=== PATIENT | male | born 1940 | race African-American/Black ===

== ENCOUNTER 2018-01-04 18:29 | Inpatient (IN) | payer OTHER, BC ==
[2018-01-10 12:00] VITALS: BMI 28.5
--- NOTE | 2018-01-10 12:07 | HP ---
HISTORY OF PRESENT ILLNESS 77 year-old male with a PMH significant for HTN and cervical radiculopathy. He is scheduled to under go C4-C5 corpectomy and C3, C6 partial corpectomy with Dr. Yoseph Lopez. PCP: Dr. 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 Smoking: quit 29 years ago Alcohol: occasional, social Drugs: no Past medical history Hypertension Past surgical history Left achilles repair 1975 ([place]) Bilateral knee arthroscopy 1989 ([facility]) Bunionectomy Home Medications Lotrel 10-20 Vitamin B12 REVIEW OF SYSTEMS CONSTITUTIONAL: Absent: fever, chills, diaphoresis, generalized weakness, malaise, loss of appetite, weight change HEENT: Absent: rhinorrhea, nasal congestion, throat pain, throat swelling, difficulty swallowing, mouth swelling, ear pain, eye pain, visual changes CARDIOVASCULAR: Absent: chest pain, syncope, palpitations, irregular heart rate, lightheadedness , peripheral edema RESPIRATORY: Absent: cough, shortness of breath, dyspnea with exertion, orthopnea, wheezing, stridor, hemoptysis GASTROINTESTINAL: Absent: abdominal pain, abdominal distension, nausea, vomiting, diarrhea, constipation, melena, hematochezia GENITOURINARY: Absent: dysuria, frequency, urgency, hesitancy, hematuria, flank pain, genital pain MUSCULOSKELETAL: +left sided trapezius and left shoulder pain Absent: myalgia, arthralgia, joint swelling, back pain, neck pain SKIN: Absent: rash, itching, pallor HEMATOLOGIC/IMMUNOLOGIC: Absent: easy bleeding, easy bruising, lymphadenopathy, frequent infections ENDOCRINE: Absent: unexplained weight gain, unexplained weight loss, heat intolerance, cold intolerance NEUROLOGIC: Absent: headache, focal weakness or paresthesias, dizziness, unsteady gait, seizure, mental status changes, bladder or bowel incontinence PSYCHIATRIC: Absent: anxiety, depression, suicidal or homicidal ideation, hallucinations. PHYSICAL EXAMINATION: Vitals: T 98.5 BP 129/70 p70 RR 14 SpO2 98% room air Labs: reviewed CXR: reviewed report EC01/02/18 sinus rhythm @ 73bpm GENERAL: Awake, alert, and fully oriented, in no acute distress. HEAD: Normal with no signs of trauma. EYES: Pupils equal, round and reactive to light, extraocular movements intact, sclera anicteric, conjunctiva clear. No lid lag. EARS, NOSE, THROAT: Ears normal, nares patent, oropharynx clear without exudates. Moist mucous membranes. NECK: Normal range of motion, supple without lymphadenopathy, JVD, or masses. LUNGS: Breath sounds equal, clear to auscultation bilaterally. No wheezes, and no crackles. No accessory muscle use. HEART: Regular rate and rhythm, normal S1 and S2 without murmur, rub or gallop. ABDOMEN: Soft, nontender, not distended MUSCULOSKELETAL: Normal range of motion at all joints. No bony deformities or tenderness. No CVA tenderness. UPPER EXTREMITIES: 2+ pulses, warm, well-perfused. No cyanosis. No clubbing. No peripheral edema. LOWER EXTREMITIES: 2+ pulses, warm, well-perfused. No calf tenderness. No peripheral edema. NEUROLOGICAL: Cranial nerves II-XII intact. Normal speech. Normal gait. PSYCHIATRIC: Cooperative. Good eye contact. Appropriate mood and affect. SKIN: Warm, dry, normal turgor ASSESSMENT/PLAN: 77 year-old male with a PMH significant for HTN and cervical radiculopathy. Cervical radiculopathy --scheduled to under go C4-C5 corpectomy and C3, C6 partial corpectomy Hypertension --BP stable --continue Lotrel 10-20
[2018-01-22] MEDS ORDERED: THROMBIN (BOVINE) 5,000 UNIT VIAL TP ONE ×2 (11:47→15:43)
[2018-01-22] MEDS ORDERED: BENZOIN/ALOE VERA/STORAX/TOLU 58 ML BOTTLE ONE (11:47)
[2018-01-22] MEDS ORDERED: HEPARIN NA (PORCINE) 5,000 UNITS/ML 1ML VIAL ONE (11:47)
[2018-01-22] MEDS ORDERED: ROCURONIUM BROMIDE 50 MG/5 ML VIAL ONE (13:56)
[2018-01-22] MEDS ORDERED: SUCCINYLCHOLINE CHLORIDE 200 MG/10 ML VIAL ONE (13:56)
[2018-01-22] MEDS ORDERED: PROPOFOL 20 ML ONE ×11 (13:56→17:05)
[2018-01-22] MEDS ORDERED: MIDAZOLAM HCL 2 MG/2 ML SINGLE DOSE VIAL ONE (13:56)
[2018-01-22] MEDS ORDERED: LIDOCAINE HCL/PF 2% SDV 5ML VIAL ONE (14:00)
[2018-01-22] MEDS ORDERED: SODIUM CHLORIDE 0.9% P/F 10 ML VIAL IJ ONE ×3 (14:43→15:03)
[2018-01-22] MEDS ORDERED: ceFAZolin SODIUM 1 GM VIAL ONE (14:43)
[2018-01-22] MEDS ORDERED: ceFAZolin SODIUM 1 GM VIAL IVPB ONE (14:45)
[2018-01-22] MEDS ORDERED: VANCOMYCIN 1,000 MG VIAL (RESTRICTED TO ID ONLY) ONE (14:45)
[2018-01-22] MEDS ORDERED: VANCOMYCIN 1,000 MG VIAL (RESTRICTED TO ID ONLY) IVPB ONE (14:48)
[2018-01-22] MEDS ORDERED: DEXAMETHASONE SOD PHOSPHATE 4 MG/1 ML VIAL ONE (14:48)
[2018-01-22] MEDS ORDERED: ePHEDrine SULFATE 50 MG/1 ML AMPULE ONE (15:03)
[2018-01-22] MEDS ORDERED: GLYCOPYRROLATE 0.2 MG/1 ML VIAL ONE (15:06)
[2018-01-22] MEDS ORDERED: ACETAMINOPHEN INJECTION 100 ML IVPB ONE (17:35)
[2018-01-22] MEDS ORDERED: traMADol HCL 50 MG TABLET PO PRN (17:47)
[2018-01-22] MEDS ORDERED: oxyCODONE HCL 5 MG TABLET PO PRN ×2 (17:47)
[2018-01-22] MEDS ORDERED: ONDANSETRON 4 MG/2 ML VIAL IVPUSH PRN ×2 (17:47→18:09)
--- NOTE | 2018-01-22 17:47 | OP ---
Operative Note - Note: Operative Date: 01/22/18 Pre-Operative Diagnosis: 1. Cervical spinal stenosis. 2. Cervical myelopathy. 3. Cervical radiculopathy Operation: 1. C4 corpectomy. 2. C3, C5 partial corpectomies. 3. C3-4, C4-5 discectomies. 4. C3-C5 anterior cervical decompression & fusion. 5. Bone autograft. 6. Bone allograft Post-Operative Diagnosis: Same as Pre-op Surgeon: Yoseph Lopez Life Scientist: Tomasz Lopez Anesthesiologist/RAIL TRANSPORTATION OPERATOR: Daniel Lockwood Anesthesia: General Specimens Removed: C3-4, C4-5 disks Estimated Blood Loss (mls): 25 Fluid Volume Replaced (mls): 1,000 Operative Report Dictated: Yes
--- NOTE | 2018-01-22 17:54 | PN ---
Progress Note (short form) - Note Progress Note: 77M s/p C3-C4, C4-C5 discectomies; C4 corpectomy; C3, C5 partial corpectomies; C3-C5 anterior cervical decompression and instrumented fusion POD #0. -Admit to ICU x 24 hrs. for airway observation; OK to downgrade to floor 2017 if airway stable. -In case of airway emergency, remove anterior cervical spine dressing and pull out running suture. -Maintain head of bed >45 degrees. -Pain control: NO NSAID's. -DVT PPx: -Mechanical only: ABHILASH's, SCD's. -Post-op Ancef x 2 doses. -f/u AM labs. -Incentive spirometry. -PT/OT/Rehab, OOB. -WBAT B/L UE & LE. -d/c De Guzman catheter in AM; f/u TOV. -Keep dressing clean & dry. -No heavy lifting, bending or twisting. -Puree diet; advance as tolerated. -B/L UE & LE NV checks. -Care per ICU & primary medical hospitalist teams. -Discharge planning: Plan to discharge home tomorrow 01/23/2018; f/u [facility] [place] office Monday02/02/2018; call for appointment; . Yoseph Lopez MD (Orthopaedic Surgery).
[2018-01-22] MEDS ORDERED: LACTATED RINGERS SOLUTION 1,000 ML IV SCH (18:00)
[2018-01-22] MEDS ORDERED: HYDROmorphone *PCA* 10MG/50ML DISP.SYRIN PCA SCH (18:15)
[2018-01-22] MEDS: LACTATED RINGERS SOLUTION 1,000 ML IV SCH ×2 (20:00→21:42)
[2018-01-22] MEDS: ceFAZolin 2 GRAM PREMIX BAG IVPB SCH (21:42)
[2018-01-22] MEDS ORDERED: PNEUMOC 13-VAL CONJ-DIP CRM/PF 0.5 ML DISP.SYRIN IM ONE (23:39)
--- NOTE | 2018-01-22 23:49 | OP ---
DATE OF OPERATION: DATE OF DICTATION: 01/22/2018 SURGEON: Yoseph Lopez M.D. SENIOR PREMIUM AUDITOR: Tomasz Lopez M.D. 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 POSTOPERATIVE DIAGNOSIS: C3-4, C4, C4-5, cervical spine stenosis due to cervical spondylosis and cervical spondylotic myelopathy. OPERATION PERFORMED: 1. C4 colpectomy with C3-4 and C4-5 diskectomy. 2. Partial colpectomy C3 and partial colpectomy C5. 3. Insertion of Harms cage with autologous bone graft, C3-C5. 4. Anterior plating C3 to C5. 5. Anterior arthrodesis with bone graft C3 to C5. ANESTHESIA: General. ANTIBIOTICS GIVEN: Kefzol 2 g, 1 g vancomycin, 10 mg Decadron given preoperative. OPERATION IN DETAIL: After the patient was correctly identified, brought to the operating room, cervical spine was prepped routine with Betadine scrub solution, wiped with alcohol, Duraprep applied. The indication here was severe spinal cord compression at C3-4 and C4-5 with a patch of myelomalacia and associated myelopathy. This was performed as a fairly urgent procedure. Patient placed supine. Timeout was called. Under general anesthesia, the cervical spine was prepped in the routine manner with Betadine scrub solution, wiped with alcohol, Duraprep applied. An oblique incision is made at the level of the cricothyroid interval. The dissection was through the plane between the viscera and vessels. The larynx was retracted to the left, carotid sheath to the right, the plane between the viscera and vessels to the prevertebral fascia was identified. Using a peanut, the soft tissues were freed off the anterior aspect of the vertebral column to expose the disk. A marker pin was placed into the C4-5 disk and this was verified on lateral fluoroscopy, assessing correct level for procedure. Medial and lateral retraction performed with routine retractor system. A cast pin was placed at C5. The positions were verified on lateral fluoroscope; once this had been performed, using a matchstick immanuel tip Midas-Guy bur, 2 gutters were placed into the vertebral body of C5, all the bone harvested was then with the Le[place]ell which was resected between the two gutter cuts that were made with the latter named device. The disk of C3-4 and C4-5 were resected using curets. Using a 40-mm immanuel tipped bur, the entire rest of the operation was completed with burring of the end plates to remove all disk material and associate to end plates healthy bleeding bone. Once this had been performed, the entire posterior aspect of the corticocancellous bone was removed with the posterior longitudinal ligament, exposing the spinal cord, which soon was bulging significantly following this. A partial colpectomy of C3, partial colpectomy of C5 performed by undercutting the bone bed at the disk to ensure the cord was completely free. Once this had been performed, the distraction was noted and the Harms cage was then placed between the 2 distracting pins of the Valentine pin distractor set. The cage itself was filled with autologous bone graft and expanded some allograft putty. Once this had been completed, the cage was inserted solidly into the bone bed, the teeth grasping solidly into the end plate above and this then tapped into position inferiorly, thus providing a lock fixed construct. This was filled with bone graft. The Valentine pins were removed. The pinholes filled with allograft putty and associated bone wax. A precision size 32-mm simplicity plate applied, this was for 2-level fixation, 12-mm screws were utilized, 2 into C3 and 2 into C5. Verification of lateral fluoroscopic x-rays revealed excellent positioning of all components. The wounds were thoroughly lavaged. Hemostasis was complete. Closure, platysma and fascia 2-0 Vicryl, skin 3-0 Monocryl and Steri-Strips, no drains. Operation went well, no complications. MD NELLY Aiken/[id number]
[2018-01-23 06:11] LABS: HEMATOCRIT 41.1 % (35.4-49); MCH 33.4 pg (25.7-33.7); MEAN CELL VOLUME 98.3 fl (80-96); MEAN PLT VOLUME 8.2 fl (7.5-11.1); PLATELET COUNT 194 K/MM3 (134-434); RBC 4.18 M/mm3 (4.00-5.60); RDW 12.9 % (11.9-15.9); WHITE BLOOD COUNT 11.1 K/mm3 (4.0-10.0)
[2018-01-23] MEDS: ACETAMINOPHEN 325 MG TABLET (FP) PO SCH ×5 (06:13→20:04)
[2018-01-23] MEDS: ceFAZolin 2 GRAM PREMIX BAG IVPB SCH (06:14)
[2018-01-23 06:42] LABS: ANION GAP 7 (8-16); BLOOD UREA NITROGEN 17 mg/dL (7-18); CALCIUM 8.5 mg/dL (8.5-10.1); CHLORIDE 105 mmol/L (98-107); CO2 28 mmol/L (21-32); CREATININE 1.4 mg/dL (0.7-1.3); GLUCOSE,RANDOM 131 mg/dL (74-106); POTASSIUM 4.8 mmol/L (3.5-5.1); SODIUM 140 mmol/L (136-145)
[2018-01-23] MEDS ORDERED: amLODIPine BESYLATE 10 MG TABLET (FP) PO SCH (10:00)
[2018-01-23] MEDS ORDERED: LISINOPRIL 20 MG TABLET (FP) PO SCH (10:00)
[2018-01-23] MEDS ORDERED: PNEUMOC 13-VAL CONJ-DIP CRM/PF 0.5 ML DISP.SYRIN IM ONE (10:00)
[2018-01-23] MEDS ORDERED: PATIENT'S OWN MEDICATION (NON-FORMULARY) (Amlodipine Besylate/Benazepril [Lotrel 10-20 Mg PO SCH (10:00)
[2018-01-23] MEDS ORDERED: LACTATED RINGERS SOLUTION 1,000 ML IV SCH ×2 (12:29)
[2018-01-23] MEDS ORDERED: ONDANSETRON 4 MG/2 ML VIAL IVPUSH PRN (12:29)
[2018-01-23] MEDS ORDERED: oxyCODONE HCL 5 MG TABLET PO PRN ×2 (12:29)
[2018-01-23] MEDS ORDERED: traMADol HCL 50 MG TABLET PO PRN (12:29)
[2018-01-23] MEDS ORDERED: HYDROmorphone *PCA* 10MG/50ML DISP.SYRIN PCA SCH (13:00)
--- NOTE | 2018-01-23 13:32 | PN ---
Progress Note (short form) - Note Progress Note: Anesthesia POD#1 S/P Cervical Corpectomy under GA and HEAD OF ICT VSS,Out of bed to chair. Pain is poorly controlled. Instructions of HEAD OF ICT use is given again.No N/V Start orals today. A/P Continue the HEAD OF ICT for today. Nhi Saeed MD.
--- NOTE | 2018-01-23 13:47 | PN ---
Teaching Attending Note Name of Resident: Nelly Sheth ATTENDING PHYSICIAN STATEMENT I saw and evaluated the patient. I reviewed the resident's note and discussed the case with the resident. I agree with the resident's findings and plan as documented. SUBJECTIVE: Pt seen and examined in the ICU. Briefly, 77yo male with h/o HTN, cervical spinal stenosis with myelopathy/radiculopathy who was admitted for elective C4 corpectomy/C3, C5 partial corpectomies/C3-4, C4-5 discectomies/C3-C5 anterior cervical decompression/fusion. EBL 25mL, pain relatively controlled. No shortness of breath or chest pain. No nausea or vomiting. No fevers or chills. OBJECTIVE: Vital Signs Period Temp Pulse Resp BP Sys/Tom Pulse Ox Last 24 Hr 98.0 F-99.4 F 55-77 10-18 91-139/55-80 96-100 Intake & Output 01/20/18 01/21/18 01/22/18 01/23/18 23:59 23:59 23:59 23:59 Intake Total 2100 Output Total 825 Balance 1275 Weight 98.656 kg Gen: NAD in chair Heart: RRR Lung: decreased breath sounds at the bases Abd: soft, nontender Ext: no edema CBC, BMP 01/23/18 05:30 01/23/18 05:30 Active Medications Acetaminophen (Tylenol -) 650 mg PO Q6H AIMEE Amlodipine Besylate (Norvasc -) 10 mg PO DAILY AIMEE Hydromorphone HCl (Dilaudid Monitor Car Operator -) 10 mg TUBULAR RIVETER TUBULAR RIVETER AIMEE; Protocol Stop: 01/29/18 12:59 Lactated Ringer's (Lactated Ringers Solution) 1,000 mls @ 100 mls/hr IV ASDIR AIMEE Lactated Ringer's (Lactated Ringers Solution) 1,000 mls @ 75 mls/hr IV ASDIR AIMEE Last Admin: 01/23/18 13:14 Dose: 75 mls/hr Lisinopril (Prinivil) 20 mg PO DAILY AIMEE Lorazepam (Ativan Injection -) 1 mg IVPUSH Q6H PRN PRN Reason: MUSCLE SPASMS Ondansetron HCl (Zofran Injection) 4 mg IVPUSH Q6H PRN PRN Reason: NAUSEA AND/OR VOMITING Oxycodone HCl (Roxicodone -) 5 mg PO Q4H PRN PRN Reason: PAIN LEVEL 6-10 Oxycodone HCl (Roxicodone -) 10 mg PO Q4H PRN PRN Reason: PAIN LEVEL 7 - 10 Tramadol HCl (Ultram -) 50 mg PO Q6H PRN PRN Reason: PAIN LEVEL 6-10 ASSESSMENT AND PLAN: Cervical Stenosis with Myelopathy/Radiculopathy s/p C4 corpectomy/C3, C5 partial corpectomies/C3-4, C4-5 discectomies/C3-C5 anterior cervical decompression/fusion HTN - pain control - incentive spirometry - IVF - PO/activity/DVT prophylaxis/disposition per surgery
--- NOTE | 2018-01-23 14:53 | CONSULT ---
Consultation: HISTORY OF PRESENT ILLNESS: 77yo male with a pmhx of HTN, cervical spinal stenosis with radiculopathy who was admitted for elective C4 corpectomy/C3, C5 partial corpectomies/C3-4, C4-5 discectomies/C3-C5 anterior cervical decompression/fusion. Patient is POD #1. Patient says pain is controlled, but with soreness around surgical site. Denies chest pain, sob, edema, nausea, vomiting, dizziness, dysuria. REVIEW OF SYSTEMS: CONSTITUTIONAL: Absent: fever, chills, diaphoresis, generalized weakness, malaise, loss of appetite, weight change HEENT: Absent: rhinorrhea, nasal congestion, throat pain, throat swelling, difficulty swallowing, mouth swelling, ear pain, eye pain, visual changes CARDIOVASCULAR: Absent: chest pain, syncope, palpitations, irregular heart rate, lightheadedness , peripheral edema RESPIRATORY: Absent: cough, shortness of breath, dyspnea with exertion, orthopnea, wheezing, stridor, hemoptysis GASTROINTESTINAL: Absent: abdominal pain, abdominal distension, nausea, vomiting, diarrhea, constipation, melena, hematochezia GENITOURINARY: Absent: dysuria, frequency, urgency, hesitancy, hematuria, flank pain, genital pain MUSCULOSKELETAL: neck pain Absent: myalgia, arthralgia, joint swelling, back pain SKIN: Absent: rash, itching, pallor HEMATOLOGIC/IMMUNOLOGIC: Absent: easy bleeding, easy bruising, lymphadenopathy, frequent infections ENDOCRINE: Absent: unexplained weight gain, unexplained weight loss, heat intolerance, cold intolerance NEUROLOGIC: Absent: headache, focal weakness or paresthesias, dizziness, unsteady gait, seizure, mental status changes, bladder or bowel incontinence PHYSICAL EXAMINATION Vital Signs - 24 hr 01/22/18 01/22/18 01/22/18 18:00 18:15 18:30 Temperature 98.0 F Pulse Rate 69 73 70 Respiratory 16 14 16 Rate Blood Pressure 108/59 93/61 106/65 O2 Sat by Pulse 99 96 96 Oximetry (%) 01/22/18 01/22/18 01/22/18 18:35 18:45 19:00 Temperature Pulse Rate 70 65 69 Respiratory 16 11 L 14 Rate Blood Pressure 106/65 91/55 101/56 O2 Sat by Pulse 98 100 Oximetry (%) 01/22/18 01/22/18 01/22/18 19:15 19:30 19:45 Temperature Pulse Rate 69 67 75 Respiratory 12 13 15 Rate Blood Pressure 118/62 131/76 126/71 O2 Sat by Pulse 100 98 100 Oximetry (%) 01/22/18 01/22/18 01/22/18 20:00 20:15 20:30 Temperature Pulse Rate 72 71 77 Respiratory 14 11 L 16 Rate Blood Pressure 114/58 117/62 112/80 O2 Sat by Pulse 99 100 100 Oximetry (%) 01/22/18 01/22/18 01/22/18 20:45 21:00 21:10 Temperature 98.0 F Pulse Rate 73 72 71 Respiratory 17 16 13 Rate Blood Pressure 115/61 116/60 127/73 O2 Sat by Pulse 100 Oximetry (%) 01/22/18 01/22/18 01/22/18 21:30 22:00 23:00 Temperature Pulse Rate 70 64 Respiratory 13 17 13 Rate Blood Pressure 132/71 135/77 O2 Sat by Pulse 96 Oximetry (%) 01/23/18 01/23/18 01/23/18 00:00 01:00 02:00 Temperature 99.4 F Pulse Rate 60 63 59 L Respiratory 10 L 13 18 Rate Blood Pressure 119/69 134/75 121/64 O2 Sat by Pulse 100 Oximetry (%) 01/23/18 01/23/18 01/23/18 04:00 06:00 06:23 Temperature 98.5 F Pulse Rate 59 L 55 L Respiratory 14 14 Rate Blood Pressure 117/67 139/72 O2 Sat by Pulse 97 Oximetry (%) 01/23/18 01/23/18 01/23/18 08:00 09:00 10:00 Temperature Pulse Rate 74 76 Respiratory 13 13 Rate Blood Pressure 139/75 127/71 O2 Sat by Pulse 100 100 Oximetry (%) 01/23/18 01/23/18 01/23/18 10:23 11:00 13:00 Temperature 98.5 F Pulse Rate 62 64 Respiratory 14 18 Rate Blood Pressure 133/59 135/65 O2 Sat by Pulse 98 Oximetry (%) GENERAL: Awake, alert, and fully oriented, in no acute distress. EYES: Pupils equal, round and reactive to light, extraocular movements intact, sclera anicteric, conjunctiva clear. EARS, NOSE, THROAT: Ears normal, nares patent, oropharynx clear without exudates. Moist mucous membranes. NECK:supple without lymphadenopathy, JVD, or masses. surgical dressing ant neck. LUNGS: Breath sounds equal, clear to auscultation bilaterally. HEART: RRR, no MGR ABDOMEN: Soft, nontender, not distended, normoactive bowel sounds UPPER EXTREMITIES: 2+ pulses, warm, well-perfused. No peripheral edema. LOWER EXTREMITIES: 2+ pulses, No peripheral edema. NEUROLOGICAL: Cranial nerves II-XII intact. Laboratory Results - last 24 hr 01/23/18 01/23/18 05:30 05:30 WBC 11.1 H RBC 4.18 Hgb 14.0 Hct 41.1 MCV 98.3 H MCH 33.4 MCHC 34.0 RDW 12.9 Plt Count 194 MPV 8.2 Sodium 140 Potassium 4.8 Chloride 105 Carbon Dioxide 28 Anion Gap 7 L BUN 17 Creatinine 1.4 H Creat Clearance w eGFR 49.41 Random Glucose 131 H Calcium 8.5 Active Medications Generic Name Dose Route Start Last Admin Trade Name Freq PRN Reason Stop Dose Admin Acetaminophen 650 mg 01/23/18 18:00 Tylenol - PO Q6H AIMEE Amlodipine Besylate 10 mg 01/24/18 10:00 Norvasc - PO DAILY AIMEE Hydromorphone HCl 10 mg 01/23/18 13:00 Dilaudid Multiple Knife Edge Trimmer Operator - BUSINESS RISK ANALYST 01/29/18 12:59 BUSINESS RISK ANALYST AIMEE Protocol Lactated Ringer's 1,000 mls @ 100 mls/hr 01/23/18 12:29 Lactated Ringers Solution IV ASDIR AIMEE Lactated Ringer's 1,000 mls @ 75 mls/hr 01/23/18 12:29 01/23/18 13:14 Lactated Ringers Solution IV 75 mls/hr ASDIR AIMEE Administration Lisinopril 20 mg 01/24/18 10:00 Prinivil PO DAILY AIMEE Lorazepam 1 mg 01/23/18 12:29 Ativan Injection - IVPUSH Q6H PRN MUSCLE SPASMS Ondansetron HCl 4 mg 01/23/18 12:29 Zofran Injection IVPUSH Q6H PRN NAUSEA AND/OR VOMITING Oxycodone HCl 5 mg 01/23/18 12:29 Roxicodone - PO Q4H PRN PAIN LEVEL 6-10 Oxycodone HCl 10 mg 01/23/18 12:29 Roxicodone - PO Q4H PRN PAIN LEVEL 7 - 10 Tramadol HCl 50 mg 01/23/18 12:29 Ultram - PO Q6H PRN PAIN LEVEL 6-10 ASSESSMENT/PLAN: s/p C4 corpectomy/C3, C5 partial corpectomies/C3-4, C4-5 discectomies/C3-C5 anterior cervical decompression/fusion -pain control with Dilaudid BUSINESS RISK ANALYST, oxycodone -IV fluids -follow surgical reccs -D/c grijalva -O2 supplementation as needed. -puree diet -PT -incentive spirometry FEN -LR @ 100 -monitor lytes -puree PPx Scds Transfer to [facility] Dispo: We will continue to follow the patient. Thank you for this consultative opportunity. Visit type - Emergency Visit Emergency Visit: Yes ED Registration Date: 01/22/18 Care time: The patient presented to the Emergency Department on the above date and was hospitalized for further evaluation of their emergent condition. - New Patient This patient is new to me today: Yes Date on this admission: 01/23/18 - Critical Care Critical Care patient: Yes Total Critical Care Time (in minutes): 40 Critical Care Statement: The care of this patient involved high complexity decision making to prevent further life threatening deterioration of the patient 's condition and/or to evaluate & treat vital organ system(s) failure or risk of failure.
--- NOTE | 2018-01-23 15:41 | PN ---
Physical Exam: SUBJECTIVE: Patient seen and examined. Having sore throat. Yet to get out of bed and into chair. OBJECTIVE: Vital Signs Period Temp Pulse Resp BP Sys/Tom Pulse Ox Last 24 Hr 98.0 F-99.4 F 55-77 10-18 91-139/55-80 96-100 Vital Signs Temp 98.5 F 01/23/18 11:00 Pulse 66 01/23/18 14:23 Resp 16 01/23/18 14:23 BP 130/70 01/23/18 14:23 Pulse Ox 98 01/23/18 10:23 Intake & Output 01/22/18 01/23/18 01/23/18 23:59 11:59 23:59 Intake Total 2100 Output Total 825 Balance 1275 Weight 98.656 kg Intake: IV 2100 Output: Urine 800 De Guzman 100 Estimated Blood Loss 25 Other: Voiding Method Indwelling Catheter Urinal Weight Measurement Method Built in [facility] GENERAL: The patient is awake, alert, and fully oriented, in no acute respiratory distress. HEAD: Normal with no signs of trauma. ENT: oropharynx clear without exudates, moist mucous membranes. NECK: anterior cervical dressing LUNGS: Breath sounds equal, clear to auscultation bilaterally HEART: Regular rate and rhythm, S1, S2 ABDOMEN: Soft, nontender, nondistended, normoactive bowel sounds EXTREMITIES: 2+ pulses, warm, well-perfused, no edema. NEUROLOGICAL: AAOx3, normal muscle strength, normal tone. CBC, BMP 01/23/18 05:30 01/23/18 05:30 Laboratory Results - last 24 hr 01/23/18 01/23/18 05:30 05:30 WBC 11.1 H RBC 4.18 Hgb 14.0 Hct 41.1 MCV 98.3 H MCH 33.4 MCHC 34.0 RDW 12.9 Plt Count 194 MPV 8.2 Sodium 140 Potassium 4.8 Chloride 105 Carbon Dioxide 28 Anion Gap 7 L BUN 17 Creatinine 1.4 H Creat Clearance w eGFR 49.41 Random Glucose 131 H Calcium 8.5 Active Medications Generic Name Dose Route Start Last Admin Trade Name Freq PRN Reason Stop Dose Admin Acetaminophen 650 mg 01/23/18 18:00 Tylenol - PO Q6H AIMEE Amlodipine Besylate 10 mg 01/24/18 10:00 Norvasc - PO DAILY AIMEE Hydromorphone HCl 10 mg 01/23/18 13:00 01/23/18 15:03 Dilaudid Foreign Language Stenographer - BALING PRESS OPERATOR 01/29/18 12:59 Not Given BALING PRESS OPERATOR AIMEE Protocol Lactated Ringer's 1,000 mls @ 100 mls/hr 01/23/18 12:29 01/23/18 15:02 Lactated Ringers Solution IV Not Given ASDIR AIMEE Lactated Ringer's 1,000 mls @ 75 mls/hr 01/23/18 12:29 01/23/18 13:14 Lactated Ringers Solution IV 75 mls/hr ASDIR AIMEE Administration Lisinopril 20 mg 01/24/18 10:00 Prinivil PO DAILY AIMEE Lorazepam 1 mg 01/23/18 12:29 Ativan Injection - IVPUSH Q6H PRN MUSCLE SPASMS Ondansetron HCl 4 mg 01/23/18 12:29 Zofran Injection IVPUSH Q6H PRN NAUSEA AND/OR VOMITING Oxycodone HCl 5 mg 01/23/18 12:29 Roxicodone - PO Q4H PRN PAIN LEVEL 6-10 Oxycodone HCl 10 mg 01/23/18 12:29 Roxicodone - PO Q4H PRN PAIN LEVEL 7 - 10 Tramadol HCl 50 mg 01/23/18 12:29 Ultram - PO Q6H PRN PAIN LEVEL 6-10 Current Medications Acetaminophen (Tylenol -) 650 mg PO Q6H AIMEE Last Admin: 01/23/18 17:56 Dose: 650 mg Amlodipine Besylate (Norvasc -) 10 mg PO DAILY [facility] Hydromorphone HCl (Dilaudid Foreign Language Stenographer -) 10 mg BALING PRESS OPERATOR BALING PRESS OPERATOR [facility]; Protocol Stop: 01/29/18 12:59 Last Admin: 01/23/18 15:03 Dose: Not Given Lactated Ringer's (Lactated Ringers Solution) 1,000 mls @ 100 mls/hr IV ASDIR AIMEE Last Admin: 01/23/18 15:02 Dose: Not Given Lactated Ringer's (Lactated Ringers Solution) 1,000 mls @ 75 mls/hr IV ASDIR AIMEE Last Admin: 01/23/18 13:14 Dose: 75 mls/hr Lisinopril (Prinivil) 20 mg PO DAILY AIMEE Lorazepam (Ativan Injection -) 1 mg IVPUSH Q6H PRN PRN Reason: MUSCLE SPASMS Oxycodone HCl (Roxicodone -) 5 mg PO Q4H PRN PRN Reason: PAIN LEVEL 6-10 Oxycodone HCl (Roxicodone -) 10 mg PO Q4H PRN PRN Reason: PAIN LEVEL 7 - 10 Tramadol HCl (Ultram -) 50 mg PO Q6H PRN PRN Reason: PAIN LEVEL 6-10 Ambulatory Orders Amlodipine Besylate/Benazepril [Lotrel 10-20 mg Capsule] 1 cap PO DAILY Cyanocobalamin [Vitamin B12 -] 2,000 mcg PO DAILY 01/10/18 ASSESSMENT/PLAN: Pt is a 77 yo M with a PMH significant for HTN and cervical radiculopathy came in from elective surgery- C4-C5 corpectomy and C3, C6 partial corpectomy cervical radiculopathy POD1 s/p C3-C4, C4-C5 discectomies; C4 corpectomy; C3, C5 partial corpectomies; C3-C5 anterior cervical decompression and instrumented fusion Pt was admitted to ICU following surgery for airway observation Per surgeon: In case of airway emergency, remove anterior cervical spine dressing and pull out running suture. B/L UE & LE NV checks Maintain head of bed >45 degrees. Pain control: NO NSAID's. Incentive spirometry. PT/OT/Rehab, OOB. Keep dressing clean & dry. No heavy lifting, bending or twisting Weight bearing as tolerated in both Upper and lower extremities d/c De Guzman catheter - trial void Post-op Ancef x 2 doses. Oxycodone 10mg Q4H Tylenol 650mg Q6H Hypertension --BP stable --continue Lotrel 10-20 -DVT PPx: Mechanical FEN Pureed diet Monitor lytes and replete as needed Lactated ringers @ 75/hr Visit type - Emergency Visit Emergency Visit: Yes ED Registration Date: 01/22/18 Care time: The patient presented to the Emergency Department on the above date and was hospitalized for further evaluation of their emergent condition. - New Patient This patient is new to me today: Yes Date on this admission: 01/23/18 - Critical Care Critical Care patient: Yes Total Critical Care Time (in minutes): 39 Critical Care Statement: The care of this patient involved high complexity decision making to prevent further life threatening deterioration of the patient 's condition and/or to evaluate & treat vital organ system(s) failure or risk of failure.
--- NOTE | 2018-01-23 17:23 | PN ---
Teaching Attending Note Name of Resident: Rosario Randolph ATTENDING PHYSICIAN STATEMENT I saw and evaluated the patient. I reviewed the resident's note and discussed the case with the resident. I agree with the resident's findings and plan as documented. SUBJECTIVE:c/o sore throat. states pain is controlled. denies Cp, SOB, fever, chills, N/V/C/D OBJECTIVE: Last Vital Signs Temp Pulse Resp BP Pulse Ox 98.5 F 66 16 130/70 98 01/23/18 11:00 01/23/18 14:23 01/23/18 14:23 01/23/18 14:23 01/23/18 10:23 General NAD HEENT anterior cervical dressing c/d/i CV S1 S2 RRR no murmur/rub/gallop Lungs CTA anteriorly Abdomen soft NT/ND extremities no pedal edema ASSESSMENT AND PLAN: 77yo M with PMH HTN and cervical stenosis with scheduled for discetomies by neurosurgery 1. Cervical stenosis with radiculopathy- s/p C3-C4, C4-C5 discectomies; C4 corpectomy; C3, C5 partial corpectomies; C3-C5 anterior cervical decompression and instrumented fusion on 01/22. tolerated surgery well. santiago-operative abx. pain is currently controlled. further management per neurosurgical team. advance diet. remove grijalva. WBAT. no heavy lifting/bending/twisting. PT eval 2. pharyngitis- likely due to ETT vs surgery. chloraseptic spray prn. monitor for improvement 3. ARNOLD-likely dehydration. cont IVF. repeat in AM. 4. HTN- controlled. cont home medications 5. DVT ppx- hold with recent neurosurgery 6. MICU. stable for transfer to floors The care of this patient involved high complexity decision making to prevent further life threatening deterioration of the patient's condition and/or to evaluate & treat vital organ system(s) failure or risk of failure. 40 minutes
[2018-01-23] MEDS ORDERED: BENZOCAINE/MENTH/CETYLPYRD CL 1 EACH LOZENGE MM PRN (18:32)
[2018-01-23 19:40] LABS: BASO % 0.2 % (0-2.0); HEMATOCRIT 43.2 % (35.4-49); HEMOGLOBIN 14.2 GM/dL (11.7-16.9); LYMPH % 7.6 % (8-40); MCH 32.2 pg (25.7-33.7); MCHC 32.8 g/dl (32.0-35.9); MEAN CELL VOLUME 98.3 fl (80-96); MEAN PLT VOLUME 9.3 fl (7.5-11.1); MONO % 7.3 % (3.8-10.2); NEUT % 84.9 % (42.8-82.8); PLATELET COUNT 194 K/MM3 (134-434); RBC 4.39 M/mm3 (4.00-5.60); RDW 13.2 % (11.9-15.9); WHITE BLOOD COUNT 15.3 K/mm3 (4.0-10.0)
[2018-01-24] MEDS: ACETAMINOPHEN 325 MG TABLET (FP) PO SCH ×3 (00:52→13:24)
[2018-01-24 07:15] LABS: HEMATOCRIT 41.6 % (35.4-49); HEMOGLOBIN 14.1 GM/dL (11.7-16.9); MCHC 33.9 g/dl (32.0-35.9); MEAN CELL VOLUME 97.5 fl (80-96); MEAN PLT VOLUME 8.8 fl (7.5-11.1); PLATELET COUNT 183 K/MM3 (134-434); RBC 4.27 M/mm3 (4.00-5.60); RDW 12.7 % (11.9-15.9); WHITE BLOOD COUNT 12.6 K/mm3 (4.0-10.0)
[2018-01-24 07:40] LABS: ALBUMIN 3.5 g/dl (3.4-5.0); ANION GAP 7 (8-16); BLOOD UREA NITROGEN 19 mg/dL (7-18); CALCIUM 8.9 mg/dL (8.5-10.1); CHLORIDE 104 mmol/L (98-107); CO2 29 mmol/L (21-32); GLUCOSE,RANDOM 98 mg/dL (74-106); MAGNESIUM 2.3 mg/dL (1.8-2.4); POTASSIUM 4.1 mmol/L (3.5-5.1); SODIUM 140 mmol/L (136-145)
[2018-01-24 08:04] LABS: ALK PHOS 64 U/L (45-117); BILIRUBIN,TOTAL 0.6 mg/dL (0.2-1.0); CREATININE 1.1 mg/dL (0.7-1.3); SGOT/AST 25 U/L (15-37); SGPT/ALT 27 U/L (12-78); TOT PROT 7.9 g/dl (6.4-8.2)
--- NOTE | 2018-01-24 09:01 | DS ---
Physical Exam: SUBJECTIVE: Patient seen and examined. Able to eat. Sitting out of bed in chair. Yet to move bowels, but thinks that will come once he is out and ambulating. OBJECTIVE: Vital Signs Period Temp Pulse Resp BP Sys/Tom Pulse Ox Last 24 Hr 97.7 F-98.6 F 54-76 13-20 126-151/59-82 98-98 Vital Signs Temp 98.5 F 01/24/18 06:00 Pulse 64 01/24/18 06:00 Resp 18 01/24/18 06:00 BP 135/70 01/24/18 06:00 Pulse Ox 98 01/23/18 21:00 Intake & Output 01/23/18 01/23/18 01/24/18 11:59 23:59 11:59 Intake Total 350 Output Total 450 1400 Balance -100 -1400 Weight 98.656 kg 97.976 kg Intake: IV 350 Lactated Ringers Solution 350 1,000 ml @ 75 mls/hr IV ASDIR AIMEE Rx#:[id number] Output: Urine 450 1400 Void 450 1400 Other: Voiding Method Urinal Urinal # Unmeasured Voids Void 1 Weight Measurement Method Built in [facility] Built in [facility] PHYSICAL EXAM GENERAL: The patient is awake, alert, and fully oriented, in no acute respiratory distress. HEAD: Normal with no signs of trauma. ENT: oropharynx clear without exudates, moist mucous membranes. NECK: anterior cervical dressing LUNGS: Breath sounds equal, clear to auscultation bilaterally HEART: Regular rate and rhythm, S1, S2 ABDOMEN: Soft, nontender, nondistended, normoactive bowel sounds EXTREMITIES: 2+ pulses, warm, well-perfused, no edema. NEUROLOGICAL: AAOx3, normal muscle strength, normal tone. LABS Laboratory Results - last 24 hr 01/23/18 01/24/18 01/24/18 19:20 06:30 06:45 WBC 15.3 H 12.6 H RBC 4.39 4.27 Hgb 14.2 14.1 Hct 43.2 41.6 MCV 98.3 H 97.5 H MCH 32.2 33.0 MCHC 32.8 33.9 RDW 13.2 12.7 Plt Count 194 183 MPV 9.3 D 8.8 Absolute Neuts (auto) 13.0 Neutrophils % 84.9 H Lymphocytes % 7.6 L Monocytes % 7.3 Eosinophils % 0.0 Basophils % 0.2 Nucleated RBC % 0 Sodium 140 Potassium 4.1 Chloride 104 Carbon Dioxide 29 Anion Gap 7 L BUN 19 H Creatinine 1.1 Creat Clearance w eGFR > 60 Random Glucose 98 D Calcium 8.9 Phosphorus 3.0 Magnesium 2.3 Total Bilirubin 0.6 AST 25 ALT 27 Alkaline Phosphatase 64 Total Protein 7.9 Albumin 3.5 HOSPITAL COURSE: Date of Admission:01/22/18 Date of Discharge: 01/24/18 Pt is a 77 yo M with a PMH significant for HTN and cervical radiculopathy came in from elective surgery- C4-C5 corpectomy and C3, C6 partial corpectomy ' Pt is now s/p C3-C4, C4-C5 discectomies; C4 corpectomy; C3, C5 partial corpectomies; C3-C5 anterior cervical decompression and instrumented fusion. Pt was admitted to ICU for 24 hrs for airway observation. He received 2 doses of Ancef postop, with pain control ensured without NSAID's. Pt had head of bed maintained >45 degrees with mechanical DVT PPx and was placed on Incentive spirometry. His grijalva was discontinued on POD1. Pt is encouraged to continue PT/OT/Rehab, OOB with weight bearing as tolerated of bilateral UE and LE. His pain will be managed with Oxycodone 10mg Q4H, Tylenol 650mg Q6H. Pt is being discharged home to keep dressing clean & dry. To follow up with Dr Lopez. He should also follow up with his primary care doctor and continue on his home antihypertensive- Lotrel 10-20 Minutes to complete discharge: 39 Discharge Summary Reason For Visit: RADICULOPATHY, CERVICAL REGION Current Active Problems Stenosis of cervical spine with myelopathy (Acute) Condition: Stable - Instructions Diet, Activity, Other Instructions: You had surgeries on C3-C4, C4-C5 with decompression and and fusion on 01/22/18 Avoid NSAID's like motrin Continue to take tylenol for pain Do not take more than 1g in an hour or more than 4g/day from all sources Continue to use Incentive spirometry. - Call to make an appointment for physical therapy -Continue to bear weight on all extremities as you can tolerate -Keep dressing clean & dry. -No heavy lifting, bending or twisting. -You may eat soft foods and advance as tolerated. Please continue with your home medications as prescribed Follow with your primary care physician within a week Follow up with [facility] [place] office Monday02/02/2018; call for appointment; . If you think your symptoms are not getting better, with shortness of breath, excessive bleeding from surgical site, foul smelling discharge or increasing pain despite pain medication, please return to the emergency room Referrals: Tomasz Lopez MD [Staff Physician] - 02/02/18 Disposition: HOME - Home Medications Comprehensive Discharge Medication List: Ambulatory Orders Amlodipine Besylate/Benazepril [Lotrel 10-20 mg Capsule] 1 cap PO DAILY Cyanocobalamin [Vitamin B12 -] 2,000 mcg PO DAILY 01/10/18 This patient is new to me today: No Date on this admission: 01/24/18 Emergency Visit: No Critical Care patient: No - Discharge Referral Referred to [facility] Med [facility].: No
[2018-01-24] MEDS ORDERED: LISINOPRIL 20 MG TABLET (FP) PO SCH (10:00)
[2018-01-24] MEDS ORDERED: amLODIPine BESYLATE 10 MG TABLET (FP) PO SCH (10:00)
--- NOTE | 2018-01-24 11:33 | PN ---
Progress Note (short form) - Note Progress Note: Post op day#2.Patient stable and c/o pain score of 3-4/10.Dilaudid DAG COATER is DC today and patient put on po pain medication.No any anesthesia related problem.Patient DC from the anesthesia care.
[2018-01-24 11:39] VITALS: BP 158/75; PULSE 57; TEMP 98.9
--- NOTE | 2018-01-24 15:01 | PN ---
Teaching Attending Note Name of Resident: Rosario Randolph ATTENDING PHYSICIAN STATEMENT I saw and evaluated the patient. I reviewed the resident's note and discussed the case with the resident. I agree with the resident's findings and plan as documented. SUBJECTIVE:states sore throat improved. pain controlled. denies CP, SOB, fever, chills, N/V/C/D OBJECTIVE: Last Vital Signs Temp Pulse Resp BP Pulse Ox 98.9 F 57 L 16 158/75 98 01/24/18 08:00 01/24/18 08:00 01/24/18 09:00 01/24/18 08:00 01/24/18 09:00 General NAD HEENT anterior cervical dressing c/d/i CV S1 S2 RRR no murmur/rub/gallop Lungs CTA no wheezing/rales/rhonchi ASSESSMENT AND PLAN: 77yo M with PMH HTN and cervical stenosis with scheduled for discetomies by neurosurgery 1. Cervical stenosis with radiculopathy- s/p C3-C4, C4-C5 discectomies; C4 corpectomy; C3, C5 partial corpectomies; C3-C5 anterior cervical decompression and instrumented fusion on 01/22. tolerated surgery well. pain control. will d/c SAWMILL MOULDER OPERATOR pump and transition to po. further recommendations with neurosufery. WBAT. no heavy lifting/bending/twisting. PT eval 2. pharyngitis- likely due to ETT vs surgery. improved 3. ARNOLD-likely dehydration. resolved. d/c IVF 4. HTN- controlled. cont home medications 5. DVT ppx- hold with recent neurosurgery 6. as per neurosurgeon pt to be d/c home and will follow up next week. he will send pain and other medications that he wishes the patient to take.
== END 2018-01-24 15:01 | disposition home or self-care (01) | DRG 472 ==
LOC: UNDOADMIN 01-10 11:36 → JSAMEDAYSX 01-10 11:36 → JICU 01-22 21:07 → J8W 01-23 14:13
PROVIDERS: ADMIT Orthopaedic Surgery Orthopaedic Surgery of the Spine; ATTEND Internal Medicine
PROC: 0RG20A0 Fusion of 2 or more Cervical Vertebral Joints with Interbody Fusion Device, Anterior Approach, Anterior Column, Open Approach (ICD-10-PCS; 2018-01-22)
PROC: 0RT30ZZ Resection of Cervical Vertebral Disc, Open Approach (ICD-10-PCS; principal; 2018-01-22 11:00)
DX: M47.12 Other spondylosis with myelopathy, cervical region (principal); N17.9 Acute kidney failure, unspecified; M48.02 Spinal stenosis, cervical region; M54.12 Radiculopathy, cervical region; I10 Essential (primary) hypertension; E86.0 Dehydration; J02.9 Acute pharyngitis, unspecified
CPT/HCPCS: 36415; 76000-TC-FY; 80048; 80053; 83735; 84100; 85025; 85027; 86850; 86900; 86901; 90670; 94010; 97116-GP; 97161-GP; J0131; J1644